=== PATIENT | male | born 2000 | race Caucasian/White ===

== ENCOUNTER 2025-04-05 19:47 | Emergency (ER) | payer SELFPAY ==
[2025-04-08 11:07] LABS: QNTIFERON MITOGEN MIN NIL 9.87 IU/mL; QNTIFERON NIL 0.13 IU/mL; QNTIFERON PLUS TB1 MINUS NIL 0.00 IU/mL (<=0.34); QNTIFERON PLUS TB2 MINUS NIL 0.00 IU/mL (<=0.34); QNTIFERON TB GOLD PLUS Negative (Negative)
== END 2025-04-05 21:15 | disposition home or self-care (01) ==
LOC: MW.ED 19:47
DX: R05.2 Subacute cough (principal); Z75.3 Unavailability and inaccessibility of health-care facilities; Z79.899 Other long term (current) drug therapy
CPT/HCPCS: 36415; 71045; 71045-26; 86480; 87428-QW; 99283